=== PATIENT | male | born 1955 | race Caucasian/White ===

== ENCOUNTER 2018-03-27 14:30 | Inpatient (IN) | payer OTHER ==
[2018-03-27 15:58] LABS: ADD MAN DIFF? NO
[2018-03-27 16:00] LABS: ABNORMAL IP MESSAGE 1; BASOPHILS % 0.4 % (0.0-2.0); EOSINOPHILS # 0.1 10^3/ul (0.0-0.5); EOSINOPHILS % 1.4 % (0.0-7.0); HEMATOCRIT 39.5 % (42.0-52.0); HEMOGLOBIN 12.3 g/dl (14.0-18.0); LYMPHOCYTES # 0.6 10^3/ul (0.8-2.9); LYMPHOCYTES % 7.3 % (15.0-51.0); MEAN CORPUSCULAR HGB CONC 31.1 g/dl (32.0-37.0); MEAN CORPUSCULAR VOLUME 83.5 fl (82.0-101.0); MEAN PLATELET VOLUME 12.3 fl (7.4-10.4); MONOCYTE # 0.6 10^3/ul (0.3-0.9); MONOCYTES % 8.2 % (0.0-11.0); NEUTROPHIL # 6.5 10^3/ul (1.6-7.5); NEUTROPHILS % 82.4 % (39.0-77.0); PLATELET COUNT 139 10^3/UL (140-415); POSITIVE DIFF @See below; RED BLOOD COUNT 4.73 10^6/ul (4.70-6.10); RED CELL DISTRIBUTION WIDTH 15.5 % (11.5-14.5)
[2018-03-27 16:00] LABS: WHITE BLOOD COUNT 7.8 10^3/ul (4.8-10.8)
[2018-03-27 16:14] LABS: INR 1.42; PROTIME 17.6 Sec (11.9-14.9); PT RATIO 1.4
[2018-03-27 16:17] LABS: ALANINE AMINOTRANSFERASE 21 IU/L (13-69); ALBUMIN 3.8 g/dl (3.3-4.9); ALBUMIN/GLOBULIN RATIO 1.02; ALKALINE PHOSPHATASE 89 IU/L (42-121); ANION GAP 13 (5-13); ASPARTATE AMINO TRANSFERASE 21 IU/L (15-46); BILIRUBIN,INDIRECT 0.9 mg/dl (0-1.1); BILIRUBIN,TOTAL 0.9 mg/dl (0.2-1.3); BLOOD UREA NITROGEN 41 mg/dl (7-20); CALCIUM 9.1 mg/dl (8.4-10.2); CARBON DIOXIDE 24 mmol/L (21-31); CHLORIDE 107 mmol/L (97-110); CREATININE 2.73 mg/dl (0.61-1.24); Estimated GFR 24 mL/min (>60); GLUCOSE 146 mg/dl (70-220); POTASSIUM 4.4 mmol/L (3.5-5.1); SODIUM 144 mmol/L (135-144); TOTAL PROTEIN 7.5 g/dl (6.1-8.1)
[2018-03-27 16:29] LABS: B-TYPE NATRIURETIC PEPTIDE 5200 PG/ML (0-125); TROPONIN-I < 0.012 ng/ml (0.000-0.120)
[2018-03-27] MEDS: FUROSEMIDE 40 MG INJ IV ×2 (17:11→22:51)
[2018-03-27] MEDS ORDERED: ONDANSETRON 4 MG INJ IV (21:30)
[2018-03-27] MEDS ORDERED: DEXTROSE 50% 50 ML SYRINGE IV ×2 (22:00)
[2018-03-27] MEDS ORDERED: GLUCOSE GEL 15 GRAM TUBE PO ×2 (22:00)
[2018-03-27] MEDS ORDERED: GLUCOSE GEL 15 GRAM TUBE BUCCAL (22:00)
[2018-03-27] MEDS ORDERED: GLUCAGON 1 MG INJ IM (22:00)
[2018-03-27] MEDS: ATORVASTATIN 10 MG TAB PO (22:51)
[2018-03-27] MEDS: INSULIN ASPART [NOVOLOG] 3 ML PEN SC (23:00)
[2018-03-28] MEDS: ACCU-CHEK XX (02:00)
[2018-03-28] MEDS: FUROSEMIDE 40 MG INJ IV ×2 (05:30→17:42)
[2018-03-28] MEDS ORDERED: INSULIN ASPART [NOVOLOG] 3 ML PEN SC (07:55)
[2018-03-28] MEDS: INSULIN ASPART [NOVOLOG] 3 ML PEN SC ×4 (07:55→21:00)
[2018-03-28 08:29] LABS: ADD MAN DIFF? NO
[2018-03-28 08:38] LABS: ABNORMAL IP MESSAGE 1; BASOPHILS % 0.5 % (0.0-2.0); EOSINOPHILS # 0.1 10^3/ul (0.0-0.5); EOSINOPHILS % 1.7 % (0.0-7.0); LYMPHOCYTES # 0.5 10^3/ul (0.8-2.9); LYMPHOCYTES % 8.6 % (15.0-51.0); MEAN CORPUSCULAR HEMOGLOBIN 26.1 pg (29.0-33.0); MEAN CORPUSCULAR HGB CONC 30.8 g/dl (32.0-37.0); MEAN CORPUSCULAR VOLUME 84.8 fl (82.0-101.0); MEAN PLATELET VOLUME 13.3 fl (7.4-10.4); MONOCYTE # 0.5 10^3/ul (0.3-0.9); MONOCYTES % 8.4 % (0.0-11.0); NEUTROPHIL # 4.9 10^3/ul (1.6-7.5); NEUTROPHILS % 80.5 % (39.0-77.0); PLATELET COUNT 144 10^3/UL (140-415); POSITIVE DIFF @See below; RED CELL DISTRIBUTION WIDTH 15.6 % (11.5-14.5)
[2018-03-28] MEDS: AMLODIPINE 10 MG TAB PO (08:45)
[2018-03-28] MEDS: LINAGLIPTIN 5 MG TABLET PO (08:45)
[2018-03-28] MEDS: FOLIC ACID 1 MG TAB PO (08:45)
[2018-03-28 09:02] LABS: ALANINE AMINOTRANSFERASE 19 IU/L (13-69); ALBUMIN 3.8 g/dl (3.3-4.9); ALBUMIN/GLOBULIN RATIO 1.08; ALKALINE PHOSPHATASE 86 IU/L (42-121); ANION GAP 11 (5-13); ASPARTATE AMINO TRANSFERASE 21 IU/L (15-46); BILIRUBIN,INDIRECT 0.9 mg/dl (0-1.1); BILIRUBIN,TOTAL 0.9 mg/dl (0.2-1.3); BLOOD UREA NITROGEN 45 mg/dl (7-20); CALCIUM 9.1 mg/dl (8.4-10.2); CARBON DIOXIDE 29 mmol/L (21-31); CHLORIDE 103 mmol/L (97-110); Estimated GFR 25 mL/min (>60); GLUCOSE 126 mg/dl (70-220); POTASSIUM 4.5 mmol/L (3.5-5.1); SODIUM 143 mmol/L (135-144); TOTAL PROTEIN 7.3 g/dl (6.1-8.1)
[2018-03-28] MEDS: WARFARIN 5 MG TAB PO (17:41)
[2018-03-28] MEDS: SIMVASTATIN 20MG PO (21:19)
[2018-03-28] MEDS: ISOSORBIDE DINITRATE 10 MG TAB PO (21:21)
[2018-03-29] MEDS: ACCU-CHEK XX (02:00)
[2018-03-29] MEDS: FUROSEMIDE 40 MG INJ IV ×2 (05:16→18:13)
[2018-03-29 06:38] LABS: ANION GAP 10 (5-13); BLOOD UREA NITROGEN 49 mg/dl (7-20); CALCIUM 8.9 mg/dl (8.4-10.2); CARBON DIOXIDE 30 mmol/L (21-31); CHLORIDE 105 mmol/L (97-110); CREATININE 2.39 mg/dl (0.61-1.24); Estimated GFR 28 mL/min (>60); GLUCOSE 134 mg/dl (70-220); POTASSIUM 4.1 mmol/L (3.5-5.1); SODIUM 145 mmol/L (135-144)
[2018-03-29] MEDS: AMLODIPINE 10 MG TAB PO (08:26)
[2018-03-29] MEDS: FOLIC ACID 1 MG TAB PO (08:27)
[2018-03-29] MEDS: ISOSORBIDE DINITRATE 10 MG TAB PO ×3 (08:27→19:56)
[2018-03-29] MEDS: LINAGLIPTIN 5 MG TABLET PO (08:28)
[2018-03-29] MEDS: INSULIN ASPART [NOVOLOG] 3 ML PEN SC ×4 (08:33→19:59)
[2018-03-29] MEDS: WARFARIN 5 MG TAB PO (18:13)
[2018-03-29 18:53] LABS: CREATINE KINASE 109 IU/L (23-200)
[2018-03-29 19:04] LABS: CK INDEX 0.9; CK-MB 0.95 ng/ml (0.0-2.4); TROPONIN-I < 0.012 ng/ml (0.000-0.120)
[2018-03-29] MEDS: SIMVASTATIN 20MG PO (19:54)
[2018-03-30 01:06] LABS: CREATINE KINASE 101 IU/L (23-200)
[2018-03-30 01:20] LABS: CK INDEX 0.8; CK-MB 0.81 ng/ml (0.0-2.4); TROPONIN-I < 0.012 ng/ml (0.000-0.120)
[2018-03-30] MEDS: ACCU-CHEK XX (02:00)
[2018-03-30] MEDS: FUROSEMIDE 40 MG INJ IV ×3 (06:19→22:22)
[2018-03-30 07:09] LABS: ANION GAP 10 (5-13); BLOOD UREA NITROGEN 54 mg/dl (7-20); CALCIUM 9.2 mg/dl (8.4-10.2); CARBON DIOXIDE 29 mmol/L (21-31); CHLORIDE 104 mmol/L (97-110); CREATININE 2.51 mg/dl (0.61-1.24); Estimated GFR 26 mL/min (>60); GLUCOSE 152 mg/dl (70-220); POTASSIUM 4.2 mmol/L (3.5-5.1); SODIUM 143 mmol/L (135-144)
[2018-03-30 07:22] LABS: INR 1.37; PROTIME 17.1 Sec (11.9-14.9); PT RATIO 1.3
[2018-03-30] MEDS: LINAGLIPTIN 5 MG TABLET PO (09:36)
[2018-03-30] MEDS: FOLIC ACID 1 MG TAB PO (09:36)
[2018-03-30] MEDS: ISOSORBIDE DINITRATE 10 MG TAB PO ×3 (09:36→20:24)
[2018-03-30] MEDS: AMLODIPINE 5 MG TAB PO (09:36)
[2018-03-30] MEDS: INSULIN ASPART [NOVOLOG] 3 ML PEN SC ×4 (10:09→21:00)
[2018-03-30] MEDS: METOLAZONE 5 MG TAB PO ×2 (13:30→14:39)
[2018-03-30] MEDS: ACETAMINOPHEN 325 MG TAB PO (15:48)
[2018-03-30] MEDS: WARFARIN 5 MG TAB PO (16:42)
[2018-03-30] MEDS: GUAIFENESIN/DM 5ML CUP PO (18:20)
[2018-03-30] MEDS ORDERED: ALBUTEROL/IPRATROPIUM (NEB) 3 ML AMP HHN (18:30)
[2018-03-30] MEDS: SIMVASTATIN 20MG PO (21:44)
[2018-03-31] MEDS: ACCU-CHEK XX (02:00)
[2018-03-31] MEDS: FUROSEMIDE 40 MG INJ IV ×3 (05:13→22:18)
[2018-03-31] MEDS: FOLIC ACID 1 MG TAB PO (07:52)
[2018-03-31] MEDS: ISOSORBIDE DINITRATE 10 MG TAB PO ×3 (07:55→20:20)
[2018-03-31] MEDS: LINAGLIPTIN 5 MG TABLET PO (07:55)
[2018-03-31] MEDS: AMLODIPINE 5 MG TAB PO (07:56)
[2018-03-31] MEDS: METOLAZONE 5 MG TAB PO (07:57)
[2018-03-31] MEDS: INSULIN ASPART [NOVOLOG] 3 ML PEN SC ×4 (08:00→20:21)
[2018-03-31] MEDS: GUAIFENESIN/DM 5ML CUP PO ×2 (08:03→16:28)
[2018-03-31 08:24] LABS: ADD MAN DIFF? NO
[2018-03-31 08:33] LABS: ABNORMAL IP MESSAGE 1; BASOPHILS % 0.5 % (0.0-2.0); EOSINOPHILS # 0.1 10^3/ul (0.0-0.5); EOSINOPHILS % 2.3 % (0.0-7.0); HEMOGLOBIN 11.9 g/dl (14.0-18.0); LYMPHOCYTES # 0.7 10^3/ul (0.8-2.9); LYMPHOCYTES % 10.8 % (15.0-51.0); MEAN CORPUSCULAR HEMOGLOBIN 25.8 pg (29.0-33.0); MEAN CORPUSCULAR HGB CONC 30.5 g/dl (32.0-37.0); MEAN CORPUSCULAR VOLUME 84.6 fl (82.0-101.0); MEAN PLATELET VOLUME 13.3 fl (7.4-10.4); MONOCYTE # 0.5 10^3/ul (0.3-0.9); MONOCYTES % 8.1 % (0.0-11.0); NEUTROPHIL # 4.7 10^3/ul (1.6-7.5); NEUTROPHILS % 78.1 % (39.0-77.0); PLATELET COUNT 128 10^3/UL (140-415); POSITIVE DIFF @See below; RED BLOOD COUNT 4.61 10^6/ul (4.70-6.10); RED CELL DISTRIBUTION WIDTH 15.4 % (11.5-14.5)
[2018-03-31 08:48] LABS: PROTIME 18.4 Sec (11.9-14.9); PT RATIO 1.4
[2018-03-31 08:55] LABS: ANION GAP 11 (5-13); BLOOD UREA NITROGEN 61 mg/dl (7-20); CALCIUM 9.3 mg/dl (8.4-10.2); CARBON DIOXIDE 32 mmol/L (21-31); CHLORIDE 99 mmol/L (97-110); CREATININE 2.65 mg/dl (0.61-1.24); Estimated GFR 25 mL/min (>60); GLUCOSE 135 mg/dl (70-220); POTASSIUM 3.8 mmol/L (3.5-5.1); SODIUM 142 mmol/L (135-144)
[2018-03-31 08:56] LABS: PHOSPHORUS 4.6 mg/dl (2.5-4.9)
[2018-03-31] MEDS: WARFARIN 5 MG TAB PO (16:28)
[2018-03-31] MEDS: SIMVASTATIN 20MG PO (20:21)
[2018-04-01] MEDS: ACCU-CHEK XX (02:00)
[2018-04-01 05:40] LABS: ANION GAP 12 (5-13); BLOOD UREA NITROGEN 64 mg/dl (7-20); CALCIUM 9.9 mg/dl (8.4-10.2); CARBON DIOXIDE 37 mmol/L (21-31); CHLORIDE 94 mmol/L (97-110); CREATININE 2.75 mg/dl (0.61-1.24); Estimated GFR 24 mL/min (>60); GLUCOSE 193 mg/dl (70-220); POTASSIUM 3.9 mmol/L (3.5-5.1); SODIUM 143 mmol/L (135-144)
[2018-04-01] MEDS: FUROSEMIDE 40 MG INJ IV ×3 (05:43→22:42)
[2018-04-01] MEDS: INSULIN ASPART [NOVOLOG] 3 ML PEN SC ×4 (07:55→21:00)
[2018-04-01] MEDS: FOLIC ACID 1 MG TAB PO (08:13)
[2018-04-01] MEDS: ISOSORBIDE DINITRATE 10 MG TAB PO ×3 (08:13→21:33)
[2018-04-01] MEDS: AMLODIPINE 2.5 MG TAB PO (08:14)
[2018-04-01] MEDS: METOLAZONE 5 MG TAB PO (08:14)
[2018-04-01] MEDS: LINAGLIPTIN 5 MG TABLET PO (08:14)
[2018-04-01] MEDS: GUAIFENESIN/DM 5ML CUP PO ×2 (11:27→21:32)
[2018-04-01] MEDS: WARFARIN 5 MG TAB PO (17:14)
[2018-04-01] MEDS: SIMVASTATIN 20MG PO (21:33)
[2018-04-02] MEDS: ACCU-CHEK XX ×2 (02:00→23:49)
[2018-04-02] MEDS: FUROSEMIDE 40 MG INJ IV ×3 (05:37→21:12)
[2018-04-02 06:42] LABS: PROTIME 21.3 Sec (11.9-14.9); PT RATIO 1.7
[2018-04-02 06:43] LABS: ALANINE AMINOTRANSFERASE 17 IU/L (13-69); ALBUMIN 4.1 g/dl (3.3-4.9); ALBUMIN/GLOBULIN RATIO 0.93; ALKALINE PHOSPHATASE 97 IU/L (42-121); ANION GAP 14 (5-13); ASPARTATE AMINO TRANSFERASE 25 IU/L (15-46); BILIRUBIN,INDIRECT 0.7 mg/dl (0-1.1); BILIRUBIN,TOTAL 0.7 mg/dl (0.2-1.3); BLOOD UREA NITROGEN 72 mg/dl (7-20); CALCIUM 10.1 mg/dl (8.4-10.2); CHLORIDE 91 mmol/L (97-110); CREATININE 2.73 mg/dl (0.61-1.24); Estimated GFR 24 mL/min (>60); GLUCOSE 129 mg/dl (70-220); POTASSIUM 3.4 mmol/L (3.5-5.1); SODIUM 145 mmol/L (135-144); TOTAL PROTEIN 8.5 g/dl (6.1-8.1)
[2018-04-02 07:23] LABS: CARBON DIOXIDE 40 mmol/L (21-31)
[2018-04-02] MEDS: INSULIN ASPART [NOVOLOG] 3 ML PEN SC ×4 (07:55→20:12)
[2018-04-02] MEDS: FOLIC ACID 1 MG TAB PO (08:20)
[2018-04-02] MEDS: METOLAZONE 5 MG TAB PO (08:20)
[2018-04-02] MEDS: LINAGLIPTIN 5 MG TABLET PO (08:21)
[2018-04-02] MEDS: ISOSORBIDE DINITRATE 10 MG TAB PO ×3 (08:21→20:11)
[2018-04-02] MEDS: ACETAZOLAMIDE 250 MG TAB PO (10:31)
[2018-04-02] MEDS: POTASSIUM CHLORIDE (SR) 20 MEQ TAB PO (12:30)
[2018-04-02] MEDS: AZITHROMYCIN 250 MG TAB PO (14:46)
[2018-04-02 15:30] LABS: ADD MAN DIFF? NO
[2018-04-02 15:34] LABS: WHITE BLOOD COUNT 8.6 10^3/ul (4.8-10.8)
[2018-04-02 15:34] LABS: BASOPHILS % 0.3 % (0.0-2.0); EOSINOPHILS # 0.2 10^3/ul (0.0-0.5); HEMATOCRIT 42.3 % (42.0-52.0); HEMOGLOBIN 13.2 g/dl (14.0-18.0); LYMPHOCYTES # 0.8 10^3/ul (0.8-2.9); LYMPHOCYTES % 9.2 % (15.0-51.0); MEAN CORPUSCULAR HEMOGLOBIN 25.9 pg (29.0-33.0); MEAN CORPUSCULAR HGB CONC 31.2 g/dl (32.0-37.0); MEAN CORPUSCULAR VOLUME 82.9 fl (82.0-101.0); MONOCYTE # 0.7 10^3/ul (0.3-0.9); NEUTROPHIL # 6.9 10^3/ul (1.6-7.5); NEUTROPHILS % 80.3 % (39.0-77.0); PLATELET COUNT 194 10^3/UL (140-415); RED CELL DISTRIBUTION WIDTH 14.7 % (11.5-14.5)
[2018-04-02 15:38] LABS: AADO2 Arterial 26.8 mmHg (7.0-24.0); Allen Test ACCEPTAB; Arterial Blood Gas Oxygen Sat 94.7 mmHG (95.0-98.0); Arterial COHb 1.3 % (0.0-3.0); Arterial Fraction of Oxyhgb 93.2 % (93.0-99.0); Arterial HCO3 36.1 mmol/L (22.0-26.0); Arterial MetHb 0.3 % (0.0-1.5); Arterial pCO2 44.3 mmhg (35-45); MODE ROOM AIR; Site Right Radial
[2018-04-02] MEDS: ACETAMINOPHEN 325 MG TAB PO (16:41)
[2018-04-02] MEDS: WARFARIN 5 MG TAB PO (16:42)
[2018-04-02] MEDS: ALBUTEROL/IPRATROPIUM (NEB) 3 ML AMP HHN ×2 (16:56→20:16)
[2018-04-02] MEDS: SIMVASTATIN 20MG PO (20:12)
[2018-04-03] MEDS: ALBUTEROL/IPRATROPIUM (NEB) 3 ML AMP HHN ×6 (01:07→20:40)
[2018-04-03 06:12] LABS: ADD MAN DIFF? NO
[2018-04-03 06:14] LABS: BASOPHIL # 0.1 10^3/ul (0.0-0.1); BASOPHILS % 0.7 % (0.0-2.0); EOSINOPHILS # 0.2 10^3/ul (0.0-0.5); EOSINOPHILS % 2.7 % (0.0-7.0); HEMATOCRIT 43.8 % (42.0-52.0); HEMOGLOBIN 13.6 g/dl (14.0-18.0); MEAN CORPUSCULAR HEMOGLOBIN 25.9 pg (29.0-33.0); MEAN CORPUSCULAR HGB CONC 31.1 g/dl (32.0-37.0); MEAN CORPUSCULAR VOLUME 83.3 fl (82.0-101.0); MEAN PLATELET VOLUME 12.3 fl (7.4-10.4); MONOCYTE # 0.7 10^3/ul (0.3-0.9); MONOCYTES % 9.1 % (0.0-11.0); NEUTROPHIL # 5.5 10^3/ul (1.6-7.5); NEUTROPHILS % 73.8 % (39.0-77.0); PLATELET COUNT 195 10^3/UL (140-415); RED BLOOD COUNT 5.26 10^6/ul (4.70-6.10); RED CELL DISTRIBUTION WIDTH 14.7 % (11.5-14.5)
[2018-04-03 06:14] LABS: WHITE BLOOD COUNT 7.4 10^3/ul (4.8-10.8)
[2018-04-03 06:46] LABS: INR 2.12; PROTIME 24.3 Sec (11.9-14.9); PT RATIO 1.9
[2018-04-03 06:52] LABS: MAGNESIUM 2.3 mg/dl (1.7-2.5)
[2018-04-03 07:00] LABS: ANION GAP 13 (5-13); BLOOD UREA NITROGEN 71 mg/dl (7-20); CALCIUM 10.1 mg/dl (8.4-10.2); CARBON DIOXIDE 37 mmol/L (21-31); CHLORIDE 90 mmol/L (97-110); CREATININE 3.05 mg/dl (0.61-1.24); Estimated GFR 21 mL/min (>60); GLUCOSE 155 mg/dl (70-220); POTASSIUM 3.2 mmol/L (3.5-5.1); SODIUM 140 mmol/L (135-144)
[2018-04-03] MEDS: INSULIN ASPART [NOVOLOG] 3 ML PEN SC ×4 (07:55→20:37)
[2018-04-03] MEDS: ACETAZOLAMIDE 250 MG TAB PO (09:05)
[2018-04-03] MEDS: FOLIC ACID 1 MG TAB PO (09:05)
[2018-04-03] MEDS: AZITHROMYCIN 250 MG TAB PO (09:05)
[2018-04-03] MEDS: ISOSORBIDE DINITRATE 10 MG TAB PO ×3 (09:06→20:21)
[2018-04-03] MEDS: FUROSEMIDE 40 MG INJ IV ×2 (09:06→17:22)
[2018-04-03] MEDS: METOLAZONE 5 MG TAB PO (09:07)
[2018-04-03] MEDS: LINAGLIPTIN 5 MG TABLET PO (09:07)
[2018-04-03] MEDS: POTASSIUM CHLORIDE (SR) 20 MEQ TAB PO (14:27)
[2018-04-03] MEDS: WARFARIN 5 MG TAB PO (17:22)
[2018-04-03] MEDS: ACETAMINOPHEN 325 MG TAB PO (17:27)
[2018-04-03] MEDS: SIMVASTATIN 20MG PO (20:22)
[2018-04-03] MEDS: POTASSIUM CHLORIDE (SR) 10 MEQ TAB PO (21:05)
[2018-04-03 22:49] LABS: ADD UMIC NO; UR ASCORBIC ACID NEGATIVE (NEGATIVE); UR BILIRUBIN (Dip) NEGATIVE (NEGATIVE); UR BLOOD (Dip) NEGATIVE (NEGATIVE); UR CLARITY CLEAR (CLEAR); UR COLOR YELLOW (YELLOW); UR GLUCOSE (Dip) NEGATIVE (NEGATIVE); UR KETONES (Dip) NEGATIVE (NEGATIVE); UR LEUKOCYTE ESTERASE (Dip) NEGATIVE Leu/ul (NEGATIVE); UR NITRITE (Dip) NEGATIVE (NEGATIVE); UR SPECIFIC GRAVITY (Dip) 1.009 (1.003-1.030); UR TOTAL PROTEIN (Dip) NEGATIVE (NEGATIVE); UR UROBILINOGEN (Dip) 1+ mg/dL (NEGATIVE)
[2018-04-04 00:08] LABS: SODIUM,URINE RANDOM 97 mmol/L (30-90)
[2018-04-04] MEDS: ALBUTEROL/IPRATROPIUM (NEB) 3 ML AMP HHN ×6 (01:35→20:47)
[2018-04-04] MEDS: ACCU-CHEK XX (02:00)
[2018-04-04] MEDS: FUROSEMIDE 40 MG INJ IV ×2 (05:19→17:34)
[2018-04-04 06:29] LABS: ADD MAN DIFF? NO
[2018-04-04 06:30] LABS: BASOPHIL # 0.1 10^3/ul (0.0-0.1); BASOPHILS % 0.7 % (0.0-2.0); EOSINOPHILS # 0.2 10^3/ul (0.0-0.5); EOSINOPHILS % 3.2 % (0.0-7.0); HEMATOCRIT 41.1 % (42.0-52.0); HEMOGLOBIN 12.8 g/dl (14.0-18.0); LYMPHOCYTES % 14.1 % (15.0-51.0); MEAN CORPUSCULAR HEMOGLOBIN 25.9 pg (29.0-33.0); MEAN CORPUSCULAR HGB CONC 31.1 g/dl (32.0-37.0); MEAN CORPUSCULAR VOLUME 83.2 fl (82.0-101.0); MEAN PLATELET VOLUME 12.5 fl (7.4-10.4); MONOCYTE # 0.6 10^3/ul (0.3-0.9); MONOCYTES % 8.7 % (0.0-11.0); NEUTROPHIL # 5.3 10^3/ul (1.6-7.5); NEUTROPHILS % 72.9 % (39.0-77.0); PLATELET COUNT 189 10^3/UL (140-415); RED BLOOD COUNT 4.94 10^6/ul (4.70-6.10); RED CELL DISTRIBUTION WIDTH 14.9 % (11.5-14.5)
[2018-04-04 06:30] LABS: WHITE BLOOD COUNT 7.3 10^3/ul (4.8-10.8)
[2018-04-04 07:09] LABS: MAGNESIUM 2.4 mg/dl (1.7-2.5)
[2018-04-04 07:09] LABS: PHOSPHORUS 5.4 mg/dl (2.5-4.9)
[2018-04-04 07:13] LABS: ANION GAP 14 (5-13); BLOOD UREA NITROGEN 74 mg/dl (7-20); CALCIUM 9.6 mg/dl (8.4-10.2); CARBON DIOXIDE 35 mmol/L (21-31); CHLORIDE 91 mmol/L (97-110); CREATININE 2.96 mg/dl (0.61-1.24); Estimated GFR 22 mL/min (>60); GLUCOSE 162 mg/dl (70-220); SODIUM 140 mmol/L (135-144)
[2018-04-04] MEDS: INSULIN ASPART [NOVOLOG] 3 ML PEN SC ×4 (08:11→20:55)
[2018-04-04] MEDS: POTASSIUM CHLORIDE (SR) 20 MEQ TAB PO (08:58)
[2018-04-04] MEDS: METOLAZONE 2.5 MG TAB PO (08:58)
[2018-04-04] MEDS: AZITHROMYCIN 250 MG TAB PO (08:59)
[2018-04-04] MEDS: LINAGLIPTIN 5 MG TABLET PO (09:00)
[2018-04-04] MEDS: ISOSORBIDE DINITRATE 10 MG TAB PO ×3 (09:00→21:20)
[2018-04-04] MEDS: FOLIC ACID 1 MG TAB PO (09:00)
[2018-04-04] MEDS: GUAIFENESIN/DM 5ML CUP PO ×2 (14:46→21:51)
[2018-04-04] MEDS: WARFARIN 5 MG TAB PO (17:33)
[2018-04-04] MEDS: SIMVASTATIN 20MG PO (21:18)
[2018-04-05] MEDS: ALBUTEROL/IPRATROPIUM (NEB) 3 ML AMP HHN ×6 (00:17→21:00)
[2018-04-05] MEDS: ACCU-CHEK XX (02:00)
[2018-04-05] MEDS: GUAIFENESIN/DM 5ML CUP PO (03:05)
[2018-04-05] MEDS: FUROSEMIDE 40 MG INJ IV ×2 (06:31→16:58)
[2018-04-05 06:39] LABS: ADD MAN DIFF? NO
[2018-04-05 06:51] LABS: BASOPHIL # 0.1 10^3/ul (0.0-0.1); BASOPHILS % 0.6 % (0.0-2.0); EOSINOPHILS # 0.2 10^3/ul (0.0-0.5); EOSINOPHILS % 2.8 % (0.0-7.0); HEMATOCRIT 42.7 % (42.0-52.0); HEMOGLOBIN 13.7 g/dl (14.0-18.0); LYMPHOCYTES % 12.3 % (15.0-51.0); MEAN CORPUSCULAR HEMOGLOBIN 26.2 pg (29.0-33.0); MEAN CORPUSCULAR HGB CONC 32.1 g/dl (32.0-37.0); MEAN CORPUSCULAR VOLUME 81.8 fl (82.0-101.0); MEAN PLATELET VOLUME 12.6 fl (7.4-10.4); MONOCYTE # 0.7 10^3/ul (0.3-0.9); MONOCYTES % 8.5 % (0.0-11.0); NEUTROPHIL # 6.1 10^3/ul (1.6-7.5); NEUTROPHILS % 75.5 % (39.0-77.0); PLATELET COUNT 217 10^3/UL (140-415); RED BLOOD COUNT 5.22 10^6/ul (4.70-6.10); RED CELL DISTRIBUTION WIDTH 14.7 % (11.5-14.5)
[2018-04-05 07:14] LABS: INR 2.16; PROTIME 24.6 Sec (11.9-14.9); PT RATIO 1.9
[2018-04-05 07:19] LABS: MAGNESIUM 2.4 mg/dl (1.7-2.5)
[2018-04-05 07:19] LABS: PHOSPHORUS 4.9 mg/dl (2.5-4.9)
[2018-04-05 07:22] LABS: ANION GAP 16 (5-13); BLOOD UREA NITROGEN 78 mg/dl (7-20); CALCIUM 9.8 mg/dl (8.4-10.2); CARBON DIOXIDE 32 mmol/L (21-31); CHLORIDE 92 mmol/L (97-110); CREATININE 3.02 mg/dl (0.61-1.24); Estimated GFR 21 mL/min (>60); GLUCOSE 159 mg/dl (70-220); SODIUM 140 mmol/L (135-144)
[2018-04-05] MEDS: INSULIN ASPART [NOVOLOG] 3 ML PEN SC ×4 (08:28→21:36)
[2018-04-05] MEDS: FOLIC ACID 1 MG TAB PO (08:32)
[2018-04-05] MEDS: LINAGLIPTIN 5 MG TABLET PO (08:33)
[2018-04-05] MEDS: ISOSORBIDE DINITRATE 10 MG TAB PO ×3 (08:33→20:57)
[2018-04-05] MEDS: METOLAZONE 2.5 MG TAB PO (08:51)
[2018-04-05] MEDS: AZITHROMYCIN 250 MG TAB PO (08:51)
[2018-04-05] MEDS: POTASSIUM CHLORIDE (SR) 20 MEQ TAB PO (11:15)
[2018-04-05] MEDS: WARFARIN 5 MG TAB PO (17:03)
[2018-04-05] MEDS: PANTOPRAZOLE 40 MG INJ IV (17:03)
[2018-04-05] MEDS: SIMVASTATIN 20MG PO (20:57)
[2018-04-06] MEDS: ALBUTEROL/IPRATROPIUM (NEB) 3 ML AMP HHN ×6 (00:32→20:48)
[2018-04-06] MEDS: ACCU-CHEK XX (02:00)
[2018-04-06] MEDS: PANTOPRAZOLE 40 MG INJ IV (05:57)
[2018-04-06] MEDS: FUROSEMIDE 40 MG INJ IV (05:57)
[2018-04-06 06:28] LABS: ADD MAN DIFF? NO
[2018-04-06 06:30] LABS: BASOPHIL # 0.1 10^3/ul (0.0-0.1); BASOPHILS % 0.7 % (0.0-2.0); EOSINOPHILS # 0.3 10^3/ul (0.0-0.5); EOSINOPHILS % 3.1 % (0.0-7.0); HEMATOCRIT 42.4 % (42.0-52.0); HEMOGLOBIN 13.5 g/dl (14.0-18.0); LYMPHOCYTES # 1.1 10^3/ul (0.8-2.9); MEAN CORPUSCULAR HEMOGLOBIN 25.9 pg (29.0-33.0); MEAN CORPUSCULAR HGB CONC 31.8 g/dl (32.0-37.0); MEAN CORPUSCULAR VOLUME 81.2 fl (82.0-101.0); MEAN PLATELET VOLUME 12.1 fl (7.4-10.4); MONOCYTE # 0.8 10^3/ul (0.3-0.9); MONOCYTES % 9.5 % (0.0-11.0); NEUTROPHILS % 73.2 % (39.0-77.0); PLATELET COUNT 218 10^3/UL (140-415); RED BLOOD COUNT 5.22 10^6/ul (4.70-6.10); RED CELL DISTRIBUTION WIDTH 14.7 % (11.5-14.5)
[2018-04-06 06:30] LABS: WHITE BLOOD COUNT 8.2 10^3/ul (4.8-10.8)
[2018-04-06 06:55] LABS: ANION GAP 15 (5-13); BLOOD UREA NITROGEN 91 mg/dl (7-20); CALCIUM 9.5 mg/dl (8.4-10.2); CARBON DIOXIDE 31 mmol/L (21-31); CHLORIDE 94 mmol/L (97-110); CREATININE 3.18 mg/dl (0.61-1.24); Estimated GFR 20 mL/min (>60); GLUCOSE 169 mg/dl (70-220); SODIUM 140 mmol/L (135-144)
[2018-04-06 06:56] LABS: MAGNESIUM 2.6 mg/dl (1.7-2.5)
[2018-04-06 06:56] LABS: PHOSPHORUS 5.2 mg/dl (2.5-4.9)
[2018-04-06 07:01] LABS: B-TYPE NATRIURETIC PEPTIDE 2160 PG/ML (0-125)
[2018-04-06] MEDS: INSULIN ASPART [NOVOLOG] 3 ML PEN SC ×4 (08:43→21:37)
[2018-04-06] MEDS: ISOSORBIDE DINITRATE 10 MG TAB PO ×3 (09:55→21:22)
[2018-04-06] MEDS: FOLIC ACID 1 MG TAB PO (09:55)
[2018-04-06] MEDS: AZITHROMYCIN 250 MG TAB PO (09:56)
[2018-04-06] MEDS: LINAGLIPTIN 5 MG TABLET PO (09:56)
[2018-04-06 10:35] LABS: AADO2 Arterial 28.8 mmHg (7.0-24.0); Allen Test ACCEPTAB; Arterial Base Excess 4.7 mmol/L (-3.0-3); Arterial Blood Gas Oxygen Sat 93.4 mmHG (95.0-98.0); Arterial COHb 1.3 % (0.0-3.0); Arterial Fraction of Oxyhgb 91.9 % (93.0-99.0); Arterial HCO3 28.8 mmol/L (22.0-26.0); Arterial MetHb 0.3 % (0.0-1.5); MODE ROOM AIR; Site Right Radial
[2018-04-06] MEDS: POTASSIUM CHLORIDE (SR) 20 MEQ TAB PO (11:44)
[2018-04-06] MEDS: BUDESONIDE (NEB) 0.5MG/2ML AMP HHN ×2 (13:30→20:48)
[2018-04-06] MEDS: WARFARIN 5 MG TAB PO (17:11)
[2018-04-06] MEDS: PANTOPRAZOLE (EC) 40 MG TAB PO (17:11)
[2018-04-06] MEDS: SIMVASTATIN 20MG PO (21:23)
[2018-04-07] MEDS: ALBUTEROL/IPRATROPIUM (NEB) 3 ML AMP HHN ×6 (01:20→20:49)
[2018-04-07] MEDS: ACCU-CHEK XX (01:40)
[2018-04-07] MEDS: PANTOPRAZOLE (EC) 40 MG TAB PO ×2 (05:27→17:23)
[2018-04-07 06:55] LABS: INR 2.47; PROTIME 27.4 Sec (11.9-14.9); PT RATIO 2.1
[2018-04-07 07:06] LABS: ANION GAP 14 (5-13); BLOOD UREA NITROGEN 95 mg/dl (7-20); CALCIUM 9.3 mg/dl (8.4-10.2); CARBON DIOXIDE 32 mmol/L (21-31); CHLORIDE 95 mmol/L (97-110); CREATININE 3.18 mg/dl (0.61-1.24); Estimated GFR 20 mL/min (>60); GLUCOSE 154 mg/dl (70-220); POTASSIUM 3.2 mmol/L (3.5-5.1); SODIUM 141 mmol/L (135-144)
[2018-04-07 07:10] LABS: HEMOGLOBIN A1C 7.3 % (0-5.9)
[2018-04-07] MEDS: LINAGLIPTIN 5 MG TABLET PO (09:07)
[2018-04-07] MEDS: AZITHROMYCIN 250 MG TAB PO (09:07)
[2018-04-07] MEDS: FOLIC ACID 1 MG TAB PO (09:07)
[2018-04-07] MEDS: ISOSORBIDE DINITRATE 10 MG TAB PO ×3 (09:08→20:30)
[2018-04-07] MEDS: BUDESONIDE (NEB) 0.5MG/2ML AMP HHN ×2 (09:14→20:49)
[2018-04-07] MEDS: INSULIN ASPART [NOVOLOG] 3 ML PEN SC ×4 (10:04→20:49)
[2018-04-07] MEDS: LACTULOSE 30ML CUP PO (12:25)
[2018-04-07] MEDS: POTASSIUM CHLORIDE (SR) 20 MEQ TAB PO (12:25)
[2018-04-07] MEDS: WARFARIN 5 MG TAB PO (17:23)
[2018-04-07] MEDS: SIMVASTATIN 20MG PO (20:36)
[2018-04-08] MEDS: ALBUTEROL/IPRATROPIUM (NEB) 3 ML AMP HHN ×6 (00:15→20:25)
[2018-04-08] MEDS: ACCU-CHEK XX (02:02)
[2018-04-08] MEDS: PANTOPRAZOLE (EC) 40 MG TAB PO ×2 (05:36→17:22)
[2018-04-08 06:38] LABS: ANION GAP 16 (5-13); BLOOD UREA NITROGEN 92 mg/dl (7-20); CALCIUM 9.6 mg/dl (8.4-10.2); CARBON DIOXIDE 31 mmol/L (21-31); CHLORIDE 96 mmol/L (97-110); CREATININE 2.94 mg/dl (0.61-1.24); Estimated GFR 22 mL/min (>60); GLUCOSE 165 mg/dl (70-220); POTASSIUM 3.8 mmol/L (3.5-5.1); SODIUM 143 mmol/L (135-144)
[2018-04-08] MEDS: INSULIN ASPART [NOVOLOG] 3 ML PEN SC ×4 (07:49→20:25)
[2018-04-08] MEDS: FOLIC ACID 1 MG TAB PO (08:22)
[2018-04-08] MEDS: AZITHROMYCIN 250 MG TAB PO (08:22)
[2018-04-08] MEDS: ISOSORBIDE DINITRATE 10 MG TAB PO ×3 (08:24→20:00)
[2018-04-08] MEDS: LINAGLIPTIN 5 MG TABLET PO (08:24)
[2018-04-08] MEDS: BUDESONIDE (NEB) 0.5MG/2ML AMP HHN ×2 (08:48→20:25)
[2018-04-08] MEDS: WARFARIN 5 MG TAB PO (17:22)
[2018-04-08] MEDS: SIMVASTATIN 20MG PO (20:00)
[2018-04-09] MEDS: ALBUTEROL/IPRATROPIUM (NEB) 3 ML AMP HHN ×3 (00:38→08:00)
[2018-04-09] MEDS: ACCU-CHEK XX (02:10)
[2018-04-09] MEDS: PANTOPRAZOLE (EC) 40 MG TAB PO (05:58)
[2018-04-09 06:34] LABS: INR 2.91; PROTIME 31.3 Sec (11.9-14.9); PT RATIO 2.4
[2018-04-09 07:36] LABS: ANION GAP 14 (5-13); BLOOD UREA NITROGEN 84 mg/dl (7-20); CALCIUM 9.5 mg/dl (8.4-10.2); CARBON DIOXIDE 30 mmol/L (21-31); CHLORIDE 97 mmol/L (97-110); CREATININE 2.85 mg/dl (0.61-1.24); Estimated GFR 23 mL/min (>60); GLUCOSE 157 mg/dl (70-220); POTASSIUM 3.7 mmol/L (3.5-5.1); SODIUM 141 mmol/L (135-144)
[2018-04-09] MEDS: BUDESONIDE (NEB) 0.5MG/2ML AMP HHN (08:00)
[2018-04-09] MEDS: AZITHROMYCIN 250 MG TAB PO (08:22)
[2018-04-09] MEDS: LINAGLIPTIN 5 MG TABLET PO (08:22)
[2018-04-09] MEDS: FOLIC ACID 1 MG TAB PO (08:22)
[2018-04-09] MEDS: ISOSORBIDE DINITRATE 10 MG TAB PO (08:22)
[2018-04-09] MEDS: INSULIN ASPART [NOVOLOG] 3 ML PEN SC ×2 (08:27→12:24)
== END 2018-04-09 12:40 | disposition left against medical advice (07) | DRG 291 ==
LOC: E/R 14:30 → TEL 17:05
DX: I13.0 Hypertensive heart and chronic kidney disease with heart failure and stage 1 through stage 4 chronic kidney disease, or unspecified chronic kidney disease (principal); I50.23 Acute on chronic systolic (congestive) heart failure; J96.01 Acute respiratory failure with hypoxia; N17.9 Acute kidney failure, unspecified; Z68.41 Body mass index [BMI] 40.0-44.9, adult; E11.22 Type 2 diabetes mellitus with diabetic chronic kidney disease; N18.9 Chronic kidney disease, unspecified; I42.9 Cardiomyopathy, unspecified; Z95.810 Presence of automatic (implantable) cardiac defibrillator; I25.10 Atherosclerotic heart disease of native coronary artery without angina pectoris; Z95.1 Presence of aortocoronary bypass graft; E78.5 Hyperlipidemia, unspecified; I48.91 Unspecified atrial fibrillation; E66.9 Obesity, unspecified; G47.33 Obstructive sleep apnea (adult) (pediatric); I25.2 Old myocardial infarction; Z87.891 Personal history of nicotine dependence; N43.40 Spermatocele of epididymis, unspecified; Z86.73 Personal history of transient ischemic attack (TIA), and cerebral infarction without residual deficits
CPT/HCPCS: 36415; 36600; 71045; 76870; 80048; 80053; 81003; 82550; 82553; 82803; 82962; 83036; 83735; 83880; 84100; 84300; 84484; 85025; 85610; 85730; 93005; 93306; 93970; 94640; 94664; 99285-25

== ENCOUNTER 2018-08-19 13:16 | Emergency (ER) | payer OTHER | END 2018-08-19 14:47 | disposition home or self-care (01) | LOC: FTE 14:47 | DX: M75.92 Shoulder lesion, unspecified, left shoulder (principal); M75.91 Shoulder lesion, unspecified, right shoulder; I13.0 Hypertensive heart and chronic kidney disease with heart failure and stage 1 through stage 4 chronic kidney disease, or unspecified chronic kidney disease; I50.9 Heart failure, unspecified; N18.9 Chronic kidney disease, unspecified; E11.9 Type 2 diabetes mellitus without complications; Z79.84 Long term (current) use of oral hypoglycemic drugs; Z95.0 Presence of cardiac pacemaker | CPT/HCPCS: 93005; 99283-25 ==

== ENCOUNTER 2018-11-07 11:22 | Emergency (ER) | payer OTHER ==
[2018-11-07 12:07] LABS: ADD MAN DIFF? NO
[2018-11-07 12:09] LABS: WHITE BLOOD COUNT 5.6 10^3/ul (4.8-10.8)
[2018-11-07 12:09] LABS: BASOPHIL # 0.1 10^3/ul (0.0-0.1); BASOPHILS % 0.9 % (0.0-2.0); EOSINOPHILS # 0.1 10^3/ul (0.0-0.5); EOSINOPHILS % 2.2 % (0.0-7.0); HEMOGLOBIN 13.1 g/dl (14.0-18.0); LYMPHOCYTES # 0.8 10^3/ul (0.8-2.9); LYMPHOCYTES % 15.1 % (15.0-51.0); MEAN CORPUSCULAR HEMOGLOBIN 27.6 pg (29.0-33.0); MEAN CORPUSCULAR VOLUME 86.5 fl (82.0-101.0); MEAN PLATELET VOLUME 12.6 fl (7.4-10.4); MONOCYTE # 0.6 10^3/ul (0.3-0.9); MONOCYTES % 11.3 % (0.0-11.0); NEUTROPHIL # 3.9 10^3/ul (1.6-7.5); NEUTROPHILS % 70.1 % (39.0-77.0); PLATELET COUNT 169 10^3/UL (140-415); RED BLOOD COUNT 4.74 10^6/ul (4.70-6.10); RED CELL DISTRIBUTION WIDTH 13.8 % (11.5-14.5)
[2018-11-07 12:27] LABS: ANION GAP 11 (5-13); BLOOD UREA NITROGEN 37 mg/dl (7-20); CALCIUM 9.2 mg/dl (8.4-10.2); CARBON DIOXIDE 22 mmol/L (21-31); CHLORIDE 106 mmol/L (97-110); CREATININE 1.76 mg/dl (0.61-1.24); Estimated GFR 39 mL/min (>60); GLUCOSE 128 mg/dl (70-220); POTASSIUM 4.8 mmol/L (3.5-5.1); SODIUM 139 mmol/L (135-144)
[2018-11-07] MEDS: AL HYDROX/MG HYDROX/SIMETH 30 ML CUP PO (12:35)
== END 2018-11-07 15:08 | disposition home or self-care (01) ==
LOC: E/R 15:08
DX: R07.89 Other chest pain (principal); I11.0 Hypertensive heart disease with heart failure; I50.9 Heart failure, unspecified; E11.9 Type 2 diabetes mellitus without complications; Z79.01 Long term (current) use of anticoagulants; Z79.84 Long term (current) use of oral hypoglycemic drugs
CPT/HCPCS: 36415; 71045; 74176; 80048; 84484; 85025; 93005; 99285-25